=== PATIENT | male | born 1980 | race Caucasian/White ===

== ENCOUNTER → 2017-04-02 | Day surgery (SDC) | payer OTHER ==
[2017-04-02] VITALS (10 sets, daily range): BP systolic 114–144; BP diastolic 66–95; PULSE 69–110; RESP 9–18; O2SAT 93–100
[~2017-04-02] VITALS: Ht 175.3 cm; Wt 102.5 kg
[~2017-04-02] MED LIST: Atropine 0.4 mg/mL Inj IVPUSH PRN; Bacitracin Ointment Packet TOPICAL ONE; Bupivacaine-MPF 0.5% 30 mL Inj INFILTRATE ONE; CeFAZolin 2 Gm/50 mL D5W IV Premix IV ONE; CeFAZolin Inj 2 gm / 50mL D5W IV ONE; Dexamethasone 4 mg/mL Inj ONE; EPHEDrine Sulfate 50 mg/mL Inj IVPUSH PRN; HYDROcodone-APAP 5-325 mg Tablet PO PRN; Labetalol 5 mg/mL 20 mL Inj IV PRN; Lactated Ringer's 1,000 ML IV SCH; Lactated Ringer's 500 ML IV PRN; MetoCLOpramide 5 mg/mL 2 mL Inj IVPUSH PRN; MetoCLOpramide 5 mg/mL 2 mL Inj ONE; Ondansetron 2 mg/mL 2 mL Inj IVPUSH PRN; Ondansetron 2 mg/mL 2 mL Inj ONE; Ondansetron 8 mg ODT Tablet PO PRN; Phenylephrine 10,000 mCg/mL Inj IVPUSH PRN; Propofol 10,000 mCg/mL 20 mL Inj ONE; fentaNYL-PF 50 mCg/mL 2 mL Inj IVPUSH PRN; fentaNYL-PF 50 mCg/mL 2 mL Inj ONE
[2017-04-02] MEDS: Lactated Ringer's 1,000 ML IV SCH ×3 (05:30→10:35)
--- NOTE | 2017-04-02 10:26 | PCM.HPANE ---
Patient Data Surgeon Admitting Provider: Attending Provider:Krystle Barragan MD Primary Care Physician:Floyd Small MD Other Provider:Yahaira Bergeron Anesthesia Reason for Visit Sterilization, Family Planning Ht/WT & BMI Height (Feet): 5 Height (Inches): 9.00 Weight (Kilograms): 102.5 Body Mass Index 33.00 Allergies Coded Allergies: No Known Allergies (Unverified , 03/31/17) Past Anesthesia History Anesthesia History: Denies:: Abnormal Airway, Anesthesia Reactions, Difficult Intubation, Fam Anesthesia Reaction, Fam Malignant Hypertherm, Malignant Hyperthermia Diabetes History Hx Diabetes?: No Medications Home Meds Incl Beta Jerrod: No No Active Prescriptions or Reported Meds History History of ENT Problems?: No HEENT History: Positive for:: Sinus Problem (hx of facial fx- ed visit 2014) Denies:: Abnormal Airway Cataracts Difficult Intubation Dysphagia Glaucoma Hearing Problem TMJ Denture Type: None Teeth Condition: Within Normal Limits Hx of Heart Problems?: No Cardiovascular History: Denies:: AICD Abdominal Aortic Aneurism Atrial Fibrillation Cardiac Surgery Chest Pain Congestive Heart Failure Coronary Artery Disease Edema Heart Murmur Hypertension Irregular Heartbeat Pacemaker Peripheral Vascular Rheumatic Fever Thrombophlebitis Valvular Heart Disease Hx of Respiratory Problem?: No Respiratory History: Denies:: Asthma COPD Chest Surgery Cough Dyspnea Emphysema Hemoptysis Oxygen Administration Pneumonia Pulmonary Embolism Tuberculosis Use of C-PAP Machine Use of Inhalers / NEBS Hx Neurologic Problems?: No Neurological History: Denies:: Alzheimer's Disease CVA Dementia Dizziness Headaches Multiple Sclerosis Parkinson's Disease Peripheral Neuropathy Seizures TIA Hx of GI Problems?: No Gastrointestinal History: Denies:: Cirrhosis Diverticulitis Gall Bladder Disease Gastroesphageal Reflux Gastrointestinal Bleeding Heartburn Hepatitis Hiatal Hernia Liver Disease Rectal Bleeding Hx of Problems?: No Genitourinary History: Denies:: HX of Hemodialysis Kidney Stones Urinary Tract Infection HX of Peritoneal Dialysis: No Male Hx: Positive for:: Testicular Surgery (prior vasectomy failed- current admission problem) Denies:: Prostate Problems Scrotal Mass Skin History: Denies:: History Skin Disorders? Pressure Ulcers Hx Musculoskeletal Problems?: No Musculoskeletal History: Denies:: Back Injury Degenerative Joint Fibromyalgia Joint Replacement Musculoskeletal Trauma Myasthenia Gravis Osteoarthritis Rheumatoid Arthritis Systemic Lupus Hx of Psycho/Social Problems?: No Psycho Social History: Denies:: Anxiety Bipolar Disorder Hx Depression Suicide Attempt Hx Surgeries?: Yes (vasectomy) Hx Any Other Health Problems?: Yes Other History: Denies:: Cancer Thyroid Disease Hx Diabetes: No Smoking Status: Unknown if Ever Smoker Have You Smoked inLast 12 mo: No Stop/Bang S-Snoring: Do You Snore Loudly: Yes T-Tired: feel tired, fatigued: No O-Obsered: Observed not breath: Yes P-Blood Pressure: treated: No B- Body Mass Index > 35 kg/m2: No A- Age over 50: No N- Neck Large Circumference: No G- Gender Male: Yes SELMA Total Score: 3 Risk Assessment Category Category 1A: Patient has history of documented sleep apnea, and HAS NOT received any narcotic, sedative or anesthesia administration during this stay. Category 1B: Patient has history of documented sleep apnea, and HAS received any narcotic , sedative or anesthesia administration during this stay Category 2: Patient has SUSPECTED Obstructive Sleep Apnea, and HAS received any narcotic , sedative or anesthesia administration during this stay. Category 3: Patient has SUSPECTED Obstructive Sleep Apnea and HAS NOT received narcotic, sedative or anesthesia administration during this stay. Category 4: Outpatient in Procedural Areas with known sleep apnea or who screen positive for High Risk via the STOP/BANG questionnaire. Exam Exam Vital Signs Vital Signs Date Time Temp Pulse Resp B/P Pulse Ox O2 Delivery O2 Flow Rate FiO2 04/02/17 08:19 36.7 81 16 129/89 97 Room Air General Appearance: Alert, Oriented X3, Cooperative, No Acute Distress HEENT/AIRWAY: MP 2, Neck Movement (FROM), Mouth Opening (3 fbmo) Lungs: Clear to Auscultation, Normal Air Movement Heart: Exam Unremarkable, Regular Rate/Rhythm, No Murmurs/Rubs/Gallops Meds/Labs/Diagnostics Admission Meds Current Medications Lactated Ringer's (Lr) 1,000 ml @ 120 mls/hr [id number] IV Last administered on t 05:30; Start 04/02/17 at 05:00; Stop 04/02/17 at 13:19 Plan Impression Patient chart reviewed, patient interviewed and anesthestic plan with risks, benefits, and alternatives discussed, and informed consent obtained. NPO per Anesth. Guidelines: Yes ASA Physical Status: ASA1 Normal Healthy Anesthetic Plan: GA Bene/Risks/Altern/Consents: Yes HP Complete Prior to Induction: Yes Ed Burgess MD Apr 02, 2017 09:21
--- NOTE | 2017-04-02 12:08 | PCM.ANEP1 ---
Post Anesthesia PACU Phase 1 Assessment Vital Signs Vital Signs Date Time Temp Pulse Resp B/P Pulse Ox O2 Delivery O2 Flow Rate FiO2 04/02/17 11:30 37.1 77 16 140/87 93 Room Air 04/02/17 11:20 80 12 144/82 97 Room Air 04/02/17 11:15 36.8 80 14 138/86 99 Room Air 04/02/17 11:10 80 10 137/88 95 Room Air 04/02/17 11:05 77 9 138/84 100 Room Air 04/02/17 11:00 78 10 141/90 96 Room Air 04/02/17 10:55 93 17 144/95 97 Room Air 04/02/17 10:50 110 18 96 Room Air 04/02/17 10:44 36.5 69 11 114/66 100 Simple Mask 8 04/02/17 08:19 36.7 81 16 129/89 97 Room Air Anesthetic Administered: GA Level of Alertness: Awake, talking OCHOA's with Equal Strength: Yes Pain: No Nausea or Vomiting: No CV Function & Hydration Stable: Yes Airway Device: n/a Oxygen Delivery: Room Air Lungs: Clear to Auscultation, Normal Air Movement Dermatome Level: Full Sensation PACU Phase 2 Assessment Complications: No Follow up Care: N/A Patient Instructions Provided: N/A Ed Burgess MD Apr 02, 2017 12:08
--- NOTE | 2017-04-03 20:35 | OP ---
[address] [address] OPERATIVE REPORT PATIENT: ANIKA CORDERO : 1980 MR#: [id number] ADMIT: 04/02/2017 JOB ID: [id number] DATE OF SURGERY: 04/02/2017 PROCEDURE NAME: Bilateral vasectomy. SURGEON: Krystle Barragan MD. ANESTHESIA: General. PREOPERATIVE DIAGNOSIS(ES): Desired sterilization, status post vasectomy in clinic with persistent sperm on semen analysis. POSTOPERATIVE DIAGNOSIS(ES): Desired sterilization, status post vasectomy in clinic with persistent sperm on semen analysis. INDICATIONS: The patient is a very pleasant 36-year-old gentleman who underwent a vasectomy over six months previous with another urologist. His post procedure semen analysis had persistent high volumes of sperm and, thus, he was counseled about re-do procedure given the apparent difficulty in clinic. He was offered to do this in the operating room and wished to proceed. PROCEDURE IN DETAIL: After appropriate informed consent was obtained, the patient was brought to the operating room where he received IV antibiotics prior to the onset of procedure. He was made comfortable in the supine position, all pressure points carefully padded. Was cleaned, prepped, and draped in the usual sterile fashion. First, the right side and the left side were identified and examined quite carefully. There was no second vas felt on either side with good exam both before and during the procedure itself. An incision was made on first the right side where it was easily palpable the previously tied off end of his vas. We took out a 2 cm segment, dissected sharply, bluntly, electrocautery down to the vas deferens. A 2 cm segment was removed. We were able to see and visualize one of the ends which was tied off from the previous procedure. Hemostasis achieved with electrocautery. Then, turned our attention to the patient's left side, where again the vas deferens was identified. The area of granuloma at the location of his previous vasectomy was also quite easily noted. I was unable to locate the existence of any second vas. Thus, it was felt he somehow had continuity from one or other of the sides after the clinic vasectomy. We again identified and skeletonized a 2 cm segment of vas on this side, handed this off, cauterized, tied off, and in space the ends as we had done on the patient's right side. Hemostasis was good. The ends were allowed to retract back into the patient's body. The wound was irrigated out. We used Marcaine plain for postop pain control. The wounds were brought together with 3-0 chromic suture, the cremasteric dartos layer and then a layer of skin. Patient tolerated procedure very well, was awakened, taken in stable condition back to the postanesthesia care unit.
--- NOTE | 2017-04-05 16:32 | PATH ---
SURGICAL PATHOLOGY Attending Physician:Krystle Barragan MD CASE STATUS: Signed Out PATIENT NAME: ANIKA CORDERO PID: [id number] : 1980 DATE COLLECTED:04/02/2017 20:16 SPECIMEN: 1: Vas Deferens, Sterilization 2: Vas Deferens, Sterilization CLINICAL HISTORY: STERILIZATION 1). LEFT VAS DEFERENS (OUT AT 10:27, FIXATIVE AT 10:30) 2). RIGHT VAS DEFERENS (OUT AT 10:26, FIXATIVE AT 10:30) FINAL DIAGNOSIS: 1. Left Vas Deferens, Sterilization: One complete circumferential section of vas deferens. 2. Right Vas Deferens, Sterilization: One complete circumferential section of vas deferens. ICD10: Z30.2 GROSS DESCRIPTION: The specimens are received in formalin, labeled with the patient's name, and sublabeled as the following: (1) left vas deferens; (2) right vas deferens. (1) The specimen consists of a segment of her-white glistening rubbery vas deferens (length-2.2 cm, diameter-0.2 cm). Section code: (1A) intact vas deferens. Specimen entirely submitted. Note: Specimen is to be serially sectioned after processing. (2) The specimen consists of a segment of her-white glistening rubbery vas deferens (length- 1.9 cm, diameter-0.2 cm). Section code: (2A) intact vas deferens. Specimen entirely submitted. Note: Specimen is to be serially sectioned after processing. 04/03/17 ICD-9 CODES: CPT CODES: 1: 82635 2: 52331 Electronically Signed Out Traci Arias MD [facility] [address], [place] [address] Technical component performed at [facility], [facility] [address], [place], [address]
== END | disposition home or self-care (01) ==
LOC: SAS 07:53
PROVIDERS: ATTEND Urology
DX: Z30.2 Encounter for sterilization (principal); N99.89 Other postprocedural complications and disorders of genitourinary system; Z87.891 Personal history of nicotine dependence
CPT/HCPCS: 55250; J0690; J1100; J1885; J2250; J2405; J2704; J2765; J3010; J7120